=== PATIENT | male | born 1970 | race Two or more races ===

== ENCOUNTER 2024-05-28 08:58 | Emergency (ER) | payer OTHER ==
[~2024-05-28] VITALS: Ht 175.3 cm; Wt 86.4 kg
[2024-05-28] MEDS ORDERED: METF-1211 PO (09:06)
[2024-05-28] MEDS ORDERED: CLOP75TA60 PO (09:06)
[2024-05-28] MEDS ORDERED: SITA100 PO (09:06)
[2024-05-28] MEDS ORDERED: EMPA10TA3 PO (09:06)
[2024-05-28] MEDS ORDERED: LOSA-381 PO (09:06)
[2024-05-28 09:09] VITALS: TEMP 98
[2024-05-28] MEDS: IBUPROFEN 600 MG TABLET PO ONE (12:16)
[2024-05-28 12:40] VITALS: BP 128/65; PULSE 81; RESP 18; O2SAT 98
[2024-05-28] MEDS ORDERED: IBUP-1492 PO (12:43)
[2024-05-28] MEDS ORDERED: CYCL-448 PO (12:43)
== END 2024-05-28 17:25 | disposition home or self-care (01) ==
LOC: EMS 08:58
DX: G89.29 Other chronic pain (principal); M25.511 Pain in right shoulder; M25.512 Pain in left shoulder; E11.9 Type 2 diabetes mellitus without complications; I10 Essential (primary) hypertension
CPT/HCPCS: 82962; 99283

== ENCOUNTER 2024-07-24 22:18 | Emergency (ER) | payer OTHER ==
[~2024-07-24] VITALS: Ht 175.3 cm; Wt 86.4 kg
[~2024-07-24 22:18] MED LIST: CLOP75TA60 PO; CYCL-448 PO; EMPA10TA3 PO; IBUP-1492 PO; LOSA-381 PO; METF-1211 PO; SITA100 PO
[2024-07-24 22:30] VITALS: BP 144/71; PULSE 93; RESP 18; TEMP 97.8; O2SAT 98
[2024-07-24] MEDS: KETOROLAC TROMETHAMINE 30 MG/ML VIAL IM ONE (23:13)
== END 2024-07-24 23:29 | disposition home or self-care (01) ==
LOC: EMS 22:18
DX: K08.89 Other specified disorders of teeth and supporting structures (principal); E11.9 Type 2 diabetes mellitus without complications; I10 Essential (primary) hypertension; F17.210 Nicotine dependence, cigarettes, uncomplicated; Z79.02 Long term (current) use of antithrombotics/antiplatelets; Z79.84 Long term (current) use of oral hypoglycemic drugs
CPT/HCPCS: 99283; 82962; 96372; J1885

== ENCOUNTER 2024-07-25 14:13 | Emergency (ER) | payer OTHER ==
[~2024-07-25] VITALS: Ht 175.3 cm; Wt 86.4 kg
[2024-07-25 14:16] VITALS: BP 134/79; PULSE 90; RESP 16; TEMP 98.2; O2SAT 100
== END 2024-07-25 14:20 | disposition left against medical advice (07) ==
LOC: EMS 14:13
DX: K13.79 Other lesions of oral mucosa (principal); Z53.21 Procedure and treatment not carried out due to patient leaving prior to being seen by health care provider